=== PATIENT | male | born 1975 | race African-American/Black ===

== ENCOUNTER 2016-08-27 13:30 | Emergency (ER) | payer OTHER ==
[~2016-08-27] VITALS: Wt 100.0 kg
--- NOTE | 2016-08-27 15:13 | ERA ---
ER Documentation Chief Complaint Date/Time DATE: 08/27/16 Chief Complaint BIALTERAL EAR PAIN AND PRESSURE. FEELS LIKE ITS CLOGGED. HPI The patient is 41-year-old male, presenting to the ER because of bilateral ear pain. He had similar symptoms previously, he feels as if his ears are clogged. He denies fever, chills, neck pain, chest pain, dyspnea, abdominal pain, vomiting, diarrhea. He does not smoke does not drink Past medical/surgical history: None ROS All systems reviewed and are negative except as per history of present illness. Medications Home Meds Unable to Obtain Active Prescriptions or Reported Meds Allergies Allergies: Coded Allergies: Unknown: Unable to obtain (Unverified , 09/29/14) PMhx/Soc Medical and Surgical Hx: pt denies Medical Hx, pt denies Surgical Hx Hx Alcohol Use: No Hx Substance Use: Yes (methamphetamine almost every day) Hx Tobacco Use: No Smoking Status: Never smoker Physical Exam Vitals Vital Signs Date Time Temp Pulse Resp B/P Pulse Ox O2 Delivery O2 Flow Rate FiO2 08/27/16 13:32 99.0 92 21 137/68 98 Physical Exam Const: No acute distress. Head: Atraumatic. Eyes: Normal Conjunctiva. ENT: Normal External Ears, Nose and Mouth. Bilateral tympanic membrane obstructed with moderate amount of cerumens Neck: Full range of motion. No meningismus. Resp: Clear to auscultation bilaterally. Cardio: Regular rate and rhythm, no murmurs. Abd: Soft, non distended, normal bowel sounds, non tender. Skin: No petechiae or rashes. Back: No midline or flank tenderness. Ext: No cyanosis, or edema. Neur: Awake and alert. No focal deficit Psych: Normal Mood and Affect. Procedures/MDM MEDICAL MAKING DECISION: The patient is 41-year-old male, presenting with acute bilateral ear cerumen impaction. They were irrigated with good response. The differential diagnoses considered include but are not limited to otitis media, otitis externa Departure Diagnosis: Primary Impression: Cerumen impaction Condition: Good Patient Instructions: Cerumen Impaction, Home Care Additional Instructions: Call your primary care doctor TOMORROW for an appointment during the next 5-7 days.See the doctor sooner or return here if your condition worsens before your appointment time. The patient's blood pressure was elevated (>120/80) but appears stable without evidence of hypertension emergency or urgency. The patient was counseled about the risks of hypertension and urged to pursue outpatient monitoring and therapy within a week with their primary care physician. OSMAR LUEVANO MD Aug 27, 2016 15:13
== END 2016-08-27 15:45 | disposition home or self-care (01) ==
LOC: FTE 13:30
DX: H61.23 Impacted cerumen, bilateral (principal)
CPT/HCPCS: 99282

== ENCOUNTER 2016-12-12 15:36 | Emergency (ER) | payer OTHER ==
[~2016-12-12] VITALS: Ht 180.3 cm; Wt 113.0 kg
[2016-12-12 15:40] VITALS: Ht 180.3 cm; Wt 113.0 kg
--- NOTE | 2016-12-12 16:07 | ERD ---
ER Documentation Chief Complaint Date/Time DATE: 12/12/16 TIME: 16:06 Chief Complaint b/l ear pain HPI This 41-year-old man he says he has got chronic problems with earwax impaction. He says he is here because he wanted both of his ears cleaned out from the cerumen. Having no pain or fever says that the stream is causing some impaction and causing some mild hearing loss ROS All systems reviewed and are negative except as per history of present illness. Medications Home Meds Unable to Obtain Active Prescriptions or Reported Meds Allergies Allergies: Coded Allergies: Unknown: Unable to obtain (Unverified , 09/29/14) PMhx/Soc Hx Alcohol Use: No Hx Substance Use: Yes (methamphetamine almost every day) Hx Tobacco Use: No FmHx Family History: No coronary disease Physical Exam Vitals Vital Signs Date Time Temp Pulse Resp B/P Pulse Ox O2 Delivery O2 Flow Rate FiO2 12/12/16 15:40 99.2 102 18 140/66 99 Physical Exam Const: Well-developed, well-nourished Head: Atraumatic, normocephalic Eyes: Normal Conjunctiva, PERRLA, EOMI, normal sclera, no nystagmus ENT: Normal External Ears, the right external auditory canal does have cerumen impaction, the left has minimal, Nose and Mouth, moist mucus membranes. Neck: Full range of motion. No meningismus, no lymphadenopathy. Resp: Clear to auscultation bilaterally, no wheezing, rhonchi, rales Cardio: Regular rate and rhythm, no murmurs, S1 S2 present Abd: Soft, non tender x 4, non distended. Normal bowel sounds, no guarding or rebound, no pulsitile abdominal masses or bruits Skin: No petechiae or rashes, no ecchymosis , no maculopapular rash Back: No midline or flank tenderness Ext: No cyanosis, or edema, FROM x 4, normal inspection, neurovascularly intact x 4 Neur: Awake and alert, STR 5/5 x 4, sensation intact x 4, no focal findings, cerebellum intact Psych: Normal Mood and Affect Procedures/MDM He had lighting technician irrigate both ears to remove cerumen Departure Diagnosis: Primary Impression: Impacted cerumen of both ears Condition: Stable Patient Instructions: Cerumen Impaction, Home Care ANA CRUZ 12, 2017 16:07
[2016-12-12 17:47] VITALS: BP 117/68; PULSE 80; RESP 18
== END 2016-12-12 17:49 | disposition home or self-care (01) ==
LOC: FTE 15:36
DX: H61.23 Impacted cerumen, bilateral (principal)
CPT/HCPCS: 69209; Z7502

== ENCOUNTER 2017-07-11 15:35 | Emergency (ER) | END 2017-07-11 19:30 | disposition home or self-care (01) ==

== ENCOUNTER 2017-12-29 16:02 | Emergency (ER) | END 2017-12-29 19:51 | disposition home or self-care (01) ==

== ENCOUNTER 2018-12-16 11:15 | Emergency (ER) | payer MEDICAID, OTHER ==
[~2018-12-16] VITALS: Ht 180.3 cm; Wt 104.0 kg
[~2018-12-16 11:15] MED LIST: ALBU8.5H8 INH; AZIT250T PO; CARB15DR50 BOTH EARS; IBUP-1542 PO
[2018-12-16 11:19] VITALS: BP 160/71; PULSE 76; RESP 18; Ht 180.3 cm; Wt 104.0 kg
[2018-12-16] MEDS ORDERED: CARB-155 BOTH EARS (11:38)
[2018-12-16] MEDS ORDERED: NPH10OT BOTH EARS (11:38)
--- NOTE | 2018-12-16 13:22 | ERD ---
ER Documentation Chief Complaint Chief Complaint feels his ear clogged HPI 43-year-old male presenting with his bilateral clogged ears. He states he has a long history of cerumen impaction. This is been progressively worsening over the last month and he states he is unable to hear today. He has not use any medication. Denies medical problems. NKDA. Surgical history denies. Social history denies ROS All systems reviewed and are negative except as per history of present illness. Medications Home Meds Active Scripts Neomycin/Polymyxin/Hydrocort* (Cortisporin* Otic) 10 Ml Susp, 4 DROP BOTH EARS QID for 7 Days, EA Prov:FLAKO RODRIGUEZ PA-C 12/16/18 Carbamide Peroxide* (Debrox*) 6.5% -15 Ml Drops, 10 DROP BOTH EARS BID, #1 EA Prov:FLAKO RODRIGUEZ PA-C 12/16/18 Carbamide Peroxide* (Debrox*) 6.5% - 15 Ml Drops, 10 DROP BOTH EARS BID for 4 Days, BOTTLE Prov:OSMAR WALL DO 12/29/17 Ibuprofen* (Ibuprofen*) 600 Mg Tablet, 600 MG PO Q6H PRN for PAIN, #30 TAB Prov:OSMAR WALL DO 12/29/17 Albuterol Sulfate* (Proair HFA*) 8.5 Gm Hfa.aer.ad, 2 PUFF INH Q4H PRN for WHEEZING AND SOB, #1 INHALER Prov:DIANA SCHNEIDER MD 07/11/17 Azithromycin* (Zithromax*) 250 Mg Tablet, 250 MG PO .ZPACK DIRECTED, #6 TAB TAKE 500 MG (2 TABS) THE FIRST DAY THEN 250 MG (1 TAB) DAYS 2-5 Prov:DIANA SCHNEIDER MD 07/11/17 Allergies Allergies: Coded Allergies: No Known Allergy (Unverified , 07/11/17) PMhx/Soc Medical and Surgical Hx: pt denies Surgical Hx History of Surgery: No Anesthesia Reaction: No Hx Neurological Disorder: No Hx Respiratory Disorders: No Hx Cardiac Disorders: Yes ("heart murmur") Hx Psychiatric Problems: No Hx Miscellaneous Medical Probl: No Hx Alcohol Use: No Hx Substance Use: Yes (methamphetamine) Hx Tobacco Use: No Smoking Status: Never smoker FmHx Family History: No diabetes, No coronary disease, No other Physical Exam Vitals Vital Signs Date Temp Pulse Resp B/P (MAP) Pulse Ox O2 O2 Flow FiO2 Time Delivery Rate 12/16/18 97.9 76 18 160/71 98 11:19 (100) Physical Exam GENERAL: The patient is well-appearing, well-nourished, in no acute distress HEENT: Atraumatic. Conjunctivae are pink. Pupils equal, round, and reactive to light. There is no scleral icterus. Tympanic membranes full of cerumen. Oropharynx clear. NECK: C-spine is soft and supple. There is no meningismus. There is no cervical lymphadenopathy. CHEST: Clear to auscultation bilaterally. There are no rales, wheezes or rhonchi. HEART: Regular rate and rhythm. No murmurs, clicks, rubs or gallops. Procedures/MDM ER: Cerumen removed. MDM: 43-year-old male presenting for cerumen impaction. Patient ear lavage in the emergency room and cerumen was removed. I have low suspicion for retained foreign bodies. Patient will be placed on Cortisporin to prevent development of otitis externa. Patient is told symptoms change or worsen to return immediately to the ER. Questions answered at discharge Departure Diagnosis: Primary Impression: Cerumen impaction Condition: Stable Patient Instructions: Cerumen Impaction, Home Care Additional Instructions: FOLLOW UP WITH YOUR PRIMARY CARE PHYSICIAN TOMORROW.Return to this facility if you are not improving as expected. FLAKO RODRIGUEZ PA-C Dec 16, 2018 13:22
== END 2018-12-16 12:20 | disposition home or self-care (01) ==
LOC: FTE 11:15
DX: H61.23 Impacted cerumen, bilateral (principal)